=== PATIENT | female | born 1945 | race Hispanic/Latino ===

== ENCOUNTER 2021-07-24 12:45 | Inpatient (IN) | payer MEDICARE ==
[~2021-07-24] VITALS: Ht 154.9 cm; Wt 86.4 kg
[2021-07-24] MEDS ORDERED: PROMETHAZINE HCL 25 MG/ML 1ML AMPULE IM ONE (13:00)
[2021-07-24] MEDS ORDERED: 0.9%NACL 1000ML 1,000 ML IV SCH (13:00)
[2021-07-24 13:15] LABS: BASOPHILS % (AUTO) 0.2 % (0.0-5.0); EOSINOPHILS % (AUTO) 0.2 % (0.0-8.0); HEMATOCRIT 38.9 % (36-48); LYMPHOCYTES % (AUTO) 16.4 % (21.0-51.0); MEAN CORPUSCULAR HEMOGLOBIN 28.3 pg (27.0-33.0); MEAN CORPUSCULAR HGB CONC 33.9 g/dL (32.0-36.0); MEAN CORPUSCULAR VOLUME 83.3 fL (79-99); MONOCYTES % (AUTO) 5.8 % (3.0-13.0); NEUTROPHILS % (AUTO) 77.1 % (40.0-77.0); PLATELET COUNT (AUTO) 191 K/uL (130-400); RED BLOOD CELL COUNT(AUTO) 4.67 MIL/uL (4.00-5.50); RED CELL DISTRIBUTION WIDTH 12.2 % (11.0-15.5); WHITE BLOOD COUNT (AUTO) 14.8 K/uL (4.8-10.8)
[2021-07-24 13:33] LABS: ALBUMIN 3.8 g/dL (3.5-5.0); POTASSIUM 3.7 mmol/L (3.5-5.1); TOTAL PROTEIN, SERUM 7.9 g/dL (6.0-8.3)
[2021-07-24 14:15] LABS: APPEARANCE,URINE Clear (CLEAR); BILIRUBIN,URINE Negative (NEGATIVE); COLOR,URINE Yellow (YELLOW); GLUCOSE, URINE (UA) >=1000 mg/dL (NEGATIVE); KETONES,URINE 15 mg/dL (NEGATIVE); LEUKOCYTE ESTERASE ,URINE Negative (NEGATIVE); NITRATE,URINE Negative (NEGATIVE); OCCULT BLOOD,URINE Negative (NEGATIVE); PROTEIN,URINE Trace mg/dL (NEGATIVE); UROBILINOGEN,URINE 0.2 mg/dL (0.2-1.0)
[2021-07-24 14:25] LABS: RBC,URINE 0-1 /HPF (0-1); WBC,URINE 0-1 /HPF (0-1)
[2021-07-24 14:26] LABS: BACTERIA,URINE Few /HPF (None Seen); SQUAMOUS EPITHELIAL CELL,UR Few /HPF (0-2)
[2021-07-24] MEDS ORDERED: ZOSYN 3.375GM +NS 50ML IV SCH (14:30)
[2021-07-24] MEDS ORDERED: ONDANSETRON 4MG INJ IVP PRN (15:30)
[2021-07-24] MEDS ORDERED: MORPHINE 2 MG SYG IVP PRN (15:30)
[2021-07-24] MEDS ORDERED: ACETAMINOPHEN 325 MG TAB PO PRN ×2 (15:30)
[2021-07-24] MEDS ORDERED: ONDANSETRON 4MG INJ ONE (15:37)
[2021-07-24] MEDS ORDERED: MORPHINE 2 MG SYG ONE (15:38)
[2021-07-24] MEDS ORDERED: ATOR40TA71 PO (16:01)
[2021-07-24] MEDS ORDERED: GLIP-162 PO (16:01)
[2021-07-24] MEDS ORDERED: LOSA1TAB42 PO (16:01)
[2021-07-24] MEDS ORDERED: ASPI-1443 PO (16:01)
[2021-07-24] MEDS ORDERED: OMEP40CA21 PO (16:01)
[2021-07-24] MEDS ORDERED: DAPA10TA PO (16:01)
[2021-07-24] MEDS: DEXTROSE 5 % AND 0.9 % NACL 1,000 ML IV SCH (16:04)
[2021-07-24 16:30] VITALS: BP 117/73
[2021-07-24] MEDS: KETOROLAC 15MG/ML VIAL (15MG/ML) IV PRN (18:23)
[2021-07-24] MEDS: ZOSYN 3.375GM +NS 50ML IV SCH (20:09)
[2021-07-24 20:20] VITALS: BP 108/48
[2021-07-25] VITALS (28 sets, daily range): BP systolic 101–135; BP diastolic 44–77
[2021-07-25] MEDS: ZOSYN 3.375GM +NS 50ML IV SCH ×3 (04:31→20:16)
[2021-07-25 05:06] LABS: BASOPHILS % (AUTO) 0.1 % (0.0-5.0); EOSINOPHILS % (AUTO) 0.9 % (0.0-8.0); HEMATOCRIT 35.3 % (36-48); LYMPHOCYTES % (AUTO) 16.4 % (21.0-51.0); MEAN CORPUSCULAR HEMOGLOBIN 28.2 pg (27.0-33.0); MEAN CORPUSCULAR HGB CONC 32.9 g/dL (32.0-36.0); MEAN CORPUSCULAR VOLUME 85.9 fL (79-99); MONOCYTES % (AUTO) 7.1 % (3.0-13.0); NEUTROPHILS % (AUTO) 75.3 % (40.0-77.0); PLATELET COUNT (AUTO) 134 K/uL (130-400); RED BLOOD CELL COUNT(AUTO) 4.11 MIL/uL (4.00-5.50); RED CELL DISTRIBUTION WIDTH 12.5 % (11.0-15.5); WHITE BLOOD COUNT (AUTO) 8.2 K/uL (4.8-10.8)
[2021-07-25 05:10] LABS: MAGNESIUM 2.1 mg/dL (1.80-2.40); POTASSIUM 3.4 mmol/L (3.5-5.1)
[2021-07-25 05:28] LABS: HEMOGLOBIN A1C 6.9 % (4.0-6.0)
[2021-07-25] MEDS: ENOXAPARIN SODIUM 30 MG/0.3 ML SQ SCH (08:55)
[2021-07-25] MEDS: KETOROLAC 15MG/ML VIAL (15MG/ML) IV PRN ×2 (08:57→16:40)
[2021-07-25] MEDS ORDERED: 0.9%NACL 1000ML 1,000 ML IV ONE (10:54)
[2021-07-25] MEDS: DEXTROSE 5 % AND 0.9 % NACL 1,000 ML IV SCH (11:26)
[2021-07-25] MEDS ORDERED: FENTANYL CITRATE PF 50 MCG/1 ML 2ML VIAL ONE (12:41)
[2021-07-25] MEDS ORDERED: ROCURONIUM 10MG/1ML SYR 10 MG/ML ML ONE (12:41)
[2021-07-25] MEDS ORDERED: PROPOFOL 10 MG/ML 20ML VIAL IV ONE (12:41)
[2021-07-25] MEDS ORDERED: LIDOCAINE PF 100MG/5ML (2%) SYRINGE 5ML ONE (12:41)
[2021-07-25] MEDS ORDERED: SUCCINYLCHOLINE 200MG/10ML SYR ONE (12:41)
[2021-07-25] MEDS ORDERED: GLYCOPYRROLATE 1 MG/5 ML SYRINGE ONE (12:41)
[2021-07-25] MEDS ORDERED: BUPIVACAINE/PF 0.5% 30ML VIAL ONE (13:03)
[2021-07-25] MEDS ORDERED: NEOSTIGMINE 5MG/5ML SYR IV ONE (13:29)
[2021-07-25] MEDS ORDERED: MEPERIDINE-PF 25 MG/ML SYG ONE (14:01)
[2021-07-26] MEDS: KETOROLAC 15MG/ML VIAL (15MG/ML) IV PRN ×2 (01:41→09:52)
[2021-07-26 03:23] VITALS: BP 103/54
[2021-07-26] MEDS: ZOSYN 3.375GM +NS 50ML IV SCH (06:01)
[2021-07-26 07:10] VITALS: BP 135/63
[2021-07-26] MEDS: ENOXAPARIN SODIUM 30 MG/0.3 ML SQ SCH (09:53)
[2021-07-26 11:40] VITALS: BP 128/53
[2021-07-26 15:10] VITALS: BP 118/54
[2021-07-26 20:02] VITALS: BP 105/60
[2021-07-26] MEDS: ACETAMINOPHEN WITH CODEINE 1 TAB TAB PO PRN (22:47)
[2021-07-26 22:52] VITALS: BP 142/81
[2021-07-26] MEDS: MORPHINE 2 MG SYG IVP PRN (23:21)
[2021-07-27 03:31] VITALS: BP 115/53
[2021-07-27] MEDS: DEXTROSE 5 % AND 0.9 % NACL 1,000 ML IV SCH ×3 (04:00→21:01)
[2021-07-27 08:00] VITALS: BP 130/55
[2021-07-27] MEDS: ACETAMINOPHEN WITH CODEINE 1 TAB TAB PO PRN ×2 (09:40→21:00)
[2021-07-27] MEDS: ENOXAPARIN SODIUM 30 MG/0.3 ML SQ SCH (09:41)
[2021-07-27 11:31] VITALS: BP 120/65
[2021-07-27 14:35] LABS: HEMATOCRIT 31.7 % (36-48); MEAN CORPUSCULAR HEMOGLOBIN 27.2 pg (27.0-33.0); MEAN CORPUSCULAR HGB CONC 31.5 g/dL (32.0-36.0); MEAN CORPUSCULAR VOLUME 86.4 fL (79-99); RED BLOOD CELL COUNT(AUTO) 3.67 MIL/uL (4.00-5.50); RED CELL DISTRIBUTION WIDTH 12.3 % (11.0-15.5)
[2021-07-27 14:45] LABS: CREATININE 0.8 mg/dL (0.5-1.5); MAGNESIUM 2.4 mg/dL (1.80-2.40); POTASSIUM 3.2 mmol/L (3.5-5.1)
[2021-07-27 16:00] VITALS: BP 147/78
[2021-07-27] MEDS: SIMETHICONE 80 MG TAB.CHEW PO SCH ×2 (18:19→19:47)
[2021-07-27] MEDS: MORPHINE 2 MG SYG IVP PRN (18:20)
[2021-07-27 20:00] VITALS: BP 135/71
[2021-07-28] VITALS: BP 127/70
[2021-07-28] MEDS ORDERED: KCL 20 MEQ ERTAB PO ONE ×2 (01:11→01:12)
[2021-07-28] MEDS ORDERED: POTASSIUM CHLORIDE 20MEQ/100ML 100 ML IV PRN (01:30)
[2021-07-28] MEDS ORDERED: KCL 20 MEQ ERTAB PO PRN (01:30)
[2021-07-28] MEDS ORDERED: POTASSIUM CHLORIDE 10% ELIXIR 20 MEQ/15 ML UDCUP PO PRN (01:30)
[2021-07-28] MEDS ORDERED: LIDOCAINE HCL-MPF 1% 2ML VIAL IV PRN (01:30)
[2021-07-28 04:00] VITALS: BP 133/73
[2021-07-28 06:18] LABS: CREATININE 0.7 mg/dL (0.5-1.5); POTASSIUM 4.3 mmol/L (3.5-5.1)
[2021-07-28 07:30] VITALS: BP 136/68
[2021-07-28] MEDS: ACETAMINOPHEN WITH CODEINE 1 TAB TAB PO PRN ×2 (08:11→19:23)
[2021-07-28] MEDS: SIMETHICONE 80 MG TAB.CHEW PO SCH ×4 (08:11→20:42)
[2021-07-28] MEDS: ENOXAPARIN SODIUM 30 MG/0.3 ML SQ SCH (08:12)
[2021-07-28 11:00] VITALS: BP 123/73
[2021-07-28] MEDS ORDERED: MAGNESIUM CITRATE 296 ML SOLUTION PO PRN (12:00)
[2021-07-28] MEDS: LACTULOSE 20 GM/30 ML UDCUP PO SCH ×2 (13:44→20:39)
[2021-07-28 16:00] VITALS: BP 119/69
[2021-07-28] MEDS ORDERED: LACTULOSE 20 GM/30 ML UDCUP PO ONE (18:00)
[2021-07-28 20:00] VITALS: BP 145/80
[2021-07-28] MEDS: DEXTROSE 5 % AND 0.9 % NACL 1,000 ML IV SCH (20:00)
[2021-07-28] MEDS: MORPHINE 2 MG SYG IVP PRN (21:13)
[2021-07-29] VITALS: BP 133/64
[2021-07-29] MEDS: LACTULOSE 20 GM/30 ML UDCUP PO SCH ×2 (01:40→09:42)
[2021-07-29 04:00] VITALS: BP 148/70
[2021-07-29 07:30] VITALS: BP 147/69
[2021-07-29] MEDS: ENOXAPARIN SODIUM 30 MG/0.3 ML SQ SCH (09:41)
[2021-07-29] MEDS: SIMETHICONE 80 MG TAB.CHEW PO SCH (09:41)
[2021-07-29] MEDS: ACETAMINOPHEN WITH CODEINE 1 TAB TAB PO PRN (10:54)
[2021-07-29 11:00] VITALS: BP 131/70
[2021-07-29] MEDS ORDERED: LACTULOSE 20 GM/30 ML UDCUP PO SCH (16:00)
[2021-07-29] MEDS ORDERED: SIMETHICONE 80 MG TAB.CHEW PO SCH (16:00)
== END 2021-07-29 15:52 | disposition home or self-care (01) | DRG 854 ==
LOC: EDH 12:45 → EDHIP 15:16 → 4BH 16:32
PROVIDERS: ADMIT Internal Medicine Infectious Disease; ATTEND Internal Medicine Infectious Disease
PROC: 0DTJ4ZZ Resection of Appendix, Percutaneous Endoscopic Approach (ICD-10-PCS; principal; 2021-07-25 12:57)
DX: A41.9 Sepsis, unspecified organism (principal); K35.80 Unspecified acute appendicitis; E66.01 Morbid (severe) obesity due to excess calories; E11.9 Type 2 diabetes mellitus without complications; I10 Essential (primary) hypertension; E78.00 Pure hypercholesterolemia, unspecified; E78.5 Hyperlipidemia, unspecified; E87.6 Hypokalemia; K59.00 Constipation, unspecified; Z83.3 Family history of diabetes mellitus; Z20.822 Contact with and (suspected) exposure to COVID-19; Z68.36 Body mass index [BMI] 36.0-36.9, adult; R53.81 Other malaise
CPT/HCPCS: 36415; 71045; 74018; 74176; 80048; 80053; 81001; 82948; 83036; 83605; 83690; 83735; 84484; 85025; 85027; 87635; 93005; 97039; G0378; J0330; J1650; J1885; J2001; J2175; J2405; J2543; J2550; J2704; J2710; J3010; J3490; J7030; J7042

== ENCOUNTER 2022-01-06 06:29 | Day surgery (SDC) | payer MEDICARE ==
[2022-01-04 12:17] LABS: CARBON DIOXIDE 32 mmol/L (21-32); CHLORIDE 97 mmol/L (101-111); GLOMERULAR FILTR. RATE CALC 57 mL/min (>60); GLUCOSE,RANDOM 119 mg/dL (70-105); POTASSIUM 4.1 mmol/L (3.5-5.1); SODIUM SERUM 136 mmol/L (136-145); UREA NITROGEN, BLOOD 25 mg/dL (7-18)
[2022-01-04 12:19] LABS: CRP QUANTITATIVE < 2.00 mg/L (0.00-9.0)
[2022-01-04 12:24] LABS: BASOPHILS % (AUTO) 0.4 % (0.0-5.0); LYMPHOCYTES % (AUTO) 34.8 % (21.0-51.0); MEAN CORPUSCULAR HEMOGLOBIN 27.2 pg (27.0-33.0); MEAN CORPUSCULAR HGB CONC 32.8 g/dL (32.0-36.0); MONOCYTES % (AUTO) 8.3 % (3.0-13.0); NEUTROPHILS % (AUTO) 52.3 % (40.0-77.0); PLATELET COUNT (AUTO) 173 K/uL (130-400); RED BLOOD CELL COUNT(AUTO) 4.82 MIL/uL (4.00-5.50); RED CELL DISTRIBUTION WIDTH 12.5 % (11.0-15.5); WHITE BLOOD COUNT (AUTO) 5.3 K/uL (4.8-10.8)
[2022-01-05 10:48] VITALS: BP 139/73
[~2022-01-06] VITALS: Ht 154.9 cm; Wt 84.4 kg
[2022-01-06] VITALS (15 sets, daily range): BP systolic 108–138; BP diastolic 57–78
[~2022-01-06 06:29] MED LIST: ASPI-1443 PO; ATOR40TA71 PO; DAPA10TA PO; GABA-529 PO; LOSA1TAB42 PO; MELO-106 PO; OMEG-148 PO; OMEP40CA21 PO; SEMA7TAB2 PO
[2022-01-06] MEDS ORDERED: BUPIVACAINE/PF 0.25% 30ML VIAL IJ ONE (06:55)
[2022-01-06] MEDS ORDERED: CEFAZOLIN SODIUM 2 GM VIAL IV ONE (07:18)
[2022-01-06] MEDS ORDERED: DEXAMETHASONE SOD PHOSPHATE 10MG/ML 1ML VIAL ONE (07:29)
[2022-01-06] MEDS ORDERED: ONDANSETRON 4MG INJ ONE (07:29)
[2022-01-06] MEDS ORDERED: FENTANYL CITRATE PF 50 MCG/1 ML 2ML VIAL ONE (07:29)
[2022-01-06] MEDS ORDERED: PROPOFOL 10 MG/ML 20ML VIAL IV ONE (07:29)
[2022-01-06] MEDS ORDERED: GLYCOPYRROLATE 1 MG/5 ML SYRINGE ONE (08:00)
[2022-01-06] MEDS ORDERED: CEFAZOLIN SODIUM 1 GM VIAL IVP ONE (08:00)
[2022-01-06] MEDS: 0.9%NACL 1000ML 1,000 ML IV ONE ×2 (08:05→08:30)
[2022-01-06] MEDS ORDERED: ACET-2079 PO (08:34)
== END 2022-01-06 10:30 | disposition home or self-care (01) ==
LOC: DAH 06:29
PROVIDERS: ATTEND Student in an Organized Health Care Education/Training Program
DX: M23.342 Other meniscus derangements, anterior horn of lateral meniscus, left knee (principal); M23.322 Other meniscus derangements, posterior horn of medial meniscus, left knee; M22.42 Chondromalacia patellae, left knee; I10 Essential (primary) hypertension; E11.9 Type 2 diabetes mellitus without complications; E78.5 Hyperlipidemia, unspecified; Z79.82 Long term (current) use of aspirin; Z79.01 Long term (current) use of anticoagulants; Z79.899 Other long term (current) drug therapy
CPT/HCPCS: 87426; 82040; 80048; 85025; 84134; 86140; 36415; 29880; 93005; 82948 ×2; A4649 ×2; J0690 ×2; J3010; J3490 ×2; J1100; J7030; J2704; J2405; A6223; A5120; A4215; A4223; A4222; A4221; A4663; A6450